=== PATIENT | female | born 1995 | race Caucasian/White ===

== ENCOUNTER 2017-11-06 15:57 | Emergency (ER) | payer BC ==
--- NOTE | 2017-11-06 16:04 | PDOC ---
Rapid Medical Evaluation Medical Evaluation: 11/06/17 16:02 I have performed a brief in-person evaluation of this patient. The patient presents with a chief complaint of: malaise/dizziness/nausea at 1pm. No pmhx. Pertinent physical exam findings:Stable and well ariane I have ordered the following:labs/ua The patient will proceed to the ED for further evaluation. 11/06/17 16:05
--- NOTE | 2017-11-06 16:08 | PDOC ---
Rapid Medical Evaluation Chief Complaint: Weakness Time Seen by Provider: 11/06/17 16:07 Discharge Disposition - Diagnosis Malaise - Referrals - Patient Instructions - Post Discharge Activity
[2017-11-06 16:09] VITALS: BP 128/88; PULSE 95; TEMP 97.5; BMI 23.2
[2017-11-06 16:38] LABS: BASO % 0.5 % (0-2.0); HEMATOCRIT 40.4 % (32.4-45.2); LYMPH % 15.9 % (8-40); MCH 32.6 pg (25.7-33.7); MCHC 34.8 g/dl (32.0-36.0); MEAN CELL VOLUME 93.8 fl (80-96); MEAN PLT VOLUME 7.9 fl (7.5-11.1); MONO % 6.6 % (3.8-10.2); PLATELET COUNT 276 K/MM3 (134-434); RDW 12.5 % (11.6-15.6); WHITE BLOOD COUNT 8.3 K/mm3 (4.0-10.0)
[2017-11-06 16:46] LABS: URINE APPEARANCE SLCLOUDY; URINE BILIRUBIN NEGATIVE (<2.0 mg/dL); URINE BLOOD NEGATIVE (NEGATIVE); URINE COLOR LTYELLOW; URINE GLUCOSE (UA) NEGATIVE (NEGATIVE); URINE KETONE TRACE (NEGATIVE); URINE LEUK ESTERASE TRACE (NEGATIVE); URINE NITRITE NEGATIVE (NEGATIVE); URINE PROTEIN NEGATIVE (NEGATIVE); URINE UROBILINOGEN NEGATIVE mg/dL (0.2-1.0)
[2017-11-06 16:59] LABS: ALBUMIN 4.3 g/dl (3.4-5.0); ANION GAP 6 (8-16); BILIRUBIN,TOTAL 0.2 mg/dL (0.2-1.0); BLOOD UREA NITROGEN 13 mg/dL (7-18); CALCIUM 9.6 mg/dL (8.5-10.1); CHLORIDE 106 mmol/L (98-107); CO2 27 mmol/L (21-32); CREATININE 0.8 mg/dL (0.55-1.02); GLUCOSE,RANDOM 126 mg/dL (74-106); POTASSIUM 3.4 mmol/L (3.5-5.1); SGOT/AST 13 U/L (15-37); SGPT/ALT 18 U/L (12-78); SODIUM 139 mmol/L (136-145); TOT PROT 7.3 g/dl (6.4-8.2)
[2017-11-06 17:00] LABS: ALK PHOS 43 U/L (45-117)
[2017-11-06 17:09] LABS: EPI CELLS FEW /HPF (FEW); HCG,QUALITATIVE URINE NEGATIVE; URINE BACTERIA RARE /hpf (NONE SEEN); URINE MUCUS RARE
[2017-11-06] MEDS ORDERED: ONDANSETRON *ODT* 4 MG TABLET SL ONE (17:24)
[2017-11-06] MEDS ORDERED: ONDANSETRON *ODT* 4 MG TABLET ONE (17:25)
[2017-11-06] MEDS ORDERED: ACETAMINOPHEN 500 MG TABLET (FP) PO ONE (17:27)
--- NOTE | 2017-11-06 17:35 | PDOC ---
History of Present Illness - General Chief Complaint: Weakness Stated Complaint: SWEATING, TREMORS Time Seen by Provider: 11/06/17 16:07 History Source: Patient Exam Limitations: No Limitations - History of Present Illness Initial Comments: 11/06/17 17:26 Patient came to emergency department with acute onset of nauseousness, chills, and general body aches. 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 went to the nurse's office and had vital signs done which were essentially normal including normal rhythm and regular rate, blood pressure 117/94. Patient states she felt very sweaty and warm, and mildly dizzy. 11/06/17 17:44 Timing/Duration: unsure Severity: mild, moderate Associated Symptoms: reports: cough, fever/chills, headaches, malaise Past History - Travel Traveled outside of the country in the last 30 days: No Close contact w/someone who was outside of country & ill: No - Past Medical History Allergies/Adverse Reactions: Allergies Allergy/AdvReac Type Severity Reaction Status Date / Time Sulfa (Sulfonamide Allergy Verified 11/06/17 16:10 Antibiotics) Home Medications: Ambulatory Orders Ondansetron [Zofran *Odt*] 4 mg SL PRN PRN #14 od.tablet 11/06/17 COPD: No - Suicide/Smoking/Psychosocial Hx Smoking History: Never smoked Have you smoked in the past 12 months: No Information on smoking cessation initiated: No Hx Alcohol Use: No Drug/Substance Use Hx: No Substance Use Type: None Review of Systems - Review of Systems Able to Perform ROS?: Yes Is the patient limited B[place]ian proficient: Yes Constitutional: Yes: Symptoms Reported, See HPI, Chills, Diaphoresis, Malaise HEENTM: Yes: See HPI, Nose Congestion. No: Symptoms Reported Respiratory: Yes: Symptoms reported, See HPI. No: Cough Cardiac (ROS): No: Symptoms Reported ABD/GI: Yes: Symptoms Reported, See HPI, Nausea, Poor Appetite. No: Diarrhea, Vomiting : No: Symptoms Reported Musculoskeletal: Yes: See HPI, Muscle Pain, Muscle Weakness. No: Symptoms Reported Integumentary: Yes: Symptoms Reported Neurological: Yes: Symptoms reported, See HPI, Numbness (intremittent with hands and feet), Dizziness Psychiatric: No: Anxiety All Other Systems: Reviewed and Negative *Physical Exam - Vital Signs Last Vital Signs Temp Pulse Resp BP Pulse Ox 97.5 F L 95 H 18 128/88 100 11/06/17 16:04 11/06/17 16:04 11/06/17 16:04 11/06/17 16:04 11/06/17 16:04 - Physical Exam General Appearance: Yes: Nourished, Appropriately Dressed, Apparent Distress, Mild Distress HEENT: positive: ISA (mildly glassy), TMs Normal, Pharynx Normal (no erythema but has posterior sinus drainage noted whitish in color), Pharyngeal Erythema, Nasal Congestion, Rhinorrhea, Sinus Tenderness. negative: Normal ENT Inspection Neck: positive: Supple, Lymphadenopathy (R), Lymphadenopathy (L). negative: Tender Respiratory/Chest: positive: Lungs Clear, Normal Breath Sounds. negative: Wheezing Gastrointestinal/Abdominal: positive: Normal Bowel Sounds, Soft. negative: Tender, Distended, Guarding, Rebound, Hepatomegaly, Spleenomegaly Musculoskeletal: positive: Normal Inspection Extremity: positive: Normal Capillary Refill, Normal Inspection, Normal Range of Motion. 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 NML intact, Fully Oriented, Alert, Normal Mood/ Affect, Normal Response, Motor Strength 5/5 ED Treatment Course - LABORATORY CBC & Chemistry Diagram: 11/06/17 16:13 11/06/17 16:13 - ADDITIONAL ORDERS Additional order review: Laboratory Results 11/06/17 11/06/17 11/06/17 16:27 16:13 16:13 Sodium 139 Potassium 3.4 L Chloride 106 Carbon Dioxide 27 Anion Gap 6 L BUN 13 Creatinine 0.8 Creat Clearance w eGFR > 60 Random Glucose 126 H Calcium 9.6 Total Bilirubin 0.2 AST 13 L ALT 18 Alkaline Phosphatase 43 L Total Protein 7.3 Albumin 4.3 TSH 0.74 Urine Color Ltyellow Urine Appearance Slcloudy Urine pH 7.0 Ur Specific [place] 1.015 Urine Protein Negative Urine Glucose (UA) Negative Urine Ketones Trace H Urine Blood Negative Urine Nitrite Negative Urine Bilirubin Negative Urine Urobilinogen Negative Ur Leukocyte Esterase Trace Urine WBC (Auto) 4 Urine RBC (Auto) 1 Ur Epithelial Cells Few Urine Bacteria Rare Urine Mucus Rare Urine HCG, Qual Negative 11/06/17 16:13 RBC 4.30 MCV 93.8 MCHC 34.8 RDW 12.5 MPV 7.9 Neutrophils % 76.0 Lymphocytes % 15.9 Monocytes % 6.6 Eosinophils % 1.0 Basophils % 0.5 Medical Decision Making - Medical Decision Making 11/06/17 18:47 influenza testing negative however patient has some clinical evidence of beginnings. States will watch and wait as it is returning home to [facility] for school break. Understands need to follow-up within 48 hours if symptoms and high fevers occur, no up with PMD *DC/Admit/Observation/Transfer Diagnosis at time of Disposition: Malaise, Upper respiratory infection, viral - Discharge Dispostion Disposition: HOME Condition at time of disposition: Stable Admit: No - Prescriptions Prescriptions: Ondansetron [Zofran *Odt*] 4 mg SL PRN PRN #14 od.tablet PRN Reason: vomiting - Referrals - Patient Instructions Printed Discharge Instructions: DI for Viral Upper Respiratory Infection -- Adult Additional Instructions: Rest, drink lots of fluids: Teas, water, soups, Pedialyte Saltwater gargles Steamy showers/seem to face break up mucus Avoid contact with others until fevers and cough resolved Lots of handwashing and good hygiene Continue [id number] medications for symptomatic relief Tylenol or Motrin for fever and pain Followup with private physician in one to 2 days as needed Return to emergency department for worsened symptoms, fevers, dehydration - Post Discharge Activity Forms/Work/School Notes: Back to School
[2017-11-06] MEDS ORDERED: ACETAMINOPHEN 500 MG TABLET (FP) ONE (17:40)
== END 2017-11-06 18:04 | disposition home or self-care (01) ==
LOC: JERFT 15:57
DX: J06.9 Acute upper respiratory infection, unspecified (principal); R53.81 Other malaise
CPT/HCPCS: 36415; 80053; 81003; 81015; 84443; 84703; 85025; 87804; 99281-25; Q0162